=== PATIENT | male | born 1960 | race Caucasian/White ===

== ENCOUNTER 2016-11-23 14:43 | Outpatient (CLI) ==
--- NOTE | 2016-11-23 15:06 | DI ---
EXAM: Chest two view, frontal and lateral views. HISTORY: Cough, chest congestion. COMPARISON: None available. FINDINGS: The heart size is normal. There is no pulmonary vascular congestion. The lungs are lauren r. No pleural effusion or pneumothorax is seen. No acute osseous abnormality identified. IMPRESSION: No acute cardiopulmonary process.
== END 2016-11-23 14:44 | disposition home or self-care (01) ==
LOC: RAD 14:43
PROVIDERS: ATTEND Internal Medicine
DX: R05 Cough (principal); R09.89 Other specified symptoms and signs involving the circulatory and respiratory systems

== ENCOUNTER 2016-12-07 12:38 | Outpatient (CLI) | END 2016-12-07 12:39 | disposition home or self-care (01) | LOC: CAR 12:38 | PROVIDERS: ATTEND Internal Medicine | DX: J44.9 Chronic obstructive pulmonary disease, unspecified (principal) ==

== ENCOUNTER 2017-11-24 13:33 | Outpatient (CLI) | END 2017-11-24 13:34 | disposition home or self-care (01) | LOC: LAB 13:33 | PROVIDERS: ATTEND Physician Assistant Medical | DX: R20.0 Anesthesia of skin (principal); R20.2 Paresthesia of skin; E03.9 Hypothyroidism, unspecified; R73.9 Hyperglycemia, unspecified | CPT/HCPCS: 36415; 80053; 82607; 82746; 83036; 84439; 84443; 85025; 85651; 86038; 86430 ==

== ENCOUNTER 2018-01-15 09:38 | Day surgery (SDC) | payer OTHER ==
[2018-01-15] MEDS ORDERED: LIDOCAINE 1% 20 ML MDV ID STA (11:38)
[2018-01-15] MEDS ORDERED: VERSED ONE (12:00)
[2018-01-15] MEDS ORDERED: DIPRIVAN 20 ML VIAL IVP ONE (12:00)
[2018-01-15 15:53] VITALS: BP 103/59; TEMP 97.3
--- NOTE | 2018-01-16 10:49 | OP ---
PROCEDURE: COLONOSCOPY TO THE CECUM. ENDOSCOPIST: Idalia ARROYO M.D. INDICATION: FAMILY HISTORY OF COLON CANCER FIRST DEGREE RELATIVE. INSTRUMENT: [employer]-190. MEDICATION: PER ANESTHESIA. PROCEDURE: The patient was positioned for colonoscopy. The digital rectal exam was negative. The colonoscope was inserted through the anus and advanced to the cecum. The cecum was identified using the ileocecal valve and the appendiceal orifice as landmarks. The scope was slowly withdrawn through an adequately prepped colon. The exam was normal. A few hyperplastic polyp noted in the rectal sigmoid segment. Retroflex exam was negative. [place] Bowel Prep score equals 9. Withdraw time 6 minutes and 53 seconds. PLAN: 1. Suggest repeat colonoscopy again in 5 years. CC:Dr. Yuri NORTON
== END 2018-01-15 13:30 | disposition home or self-care (01) ==
LOC: SURG 09:38
PROVIDERS: ATTEND Internal Medicine Gastroenterology
DX: Z86.010 Personal history of colon polyps (principal); Z80.0 Family history of malignant neoplasm of digestive organs